=== PATIENT | female | born 1945 | race Hispanic/Latino ===

== ENCOUNTER 2018-04-19 13:32 | Outpatient (CLI) | payer MEDICARE ==
--- NOTE | 2018-04-19 15:22 | ULT ---
SONOGRAM LEFT BREAST LIMITED: HISTORY: Bloody nipple discharge. FINDINGS: Sonographic evaluation of the retroareolar aspect of the left breast was performed. No solid or cyst ic masses. No dilated ducts. IMPRESSION: BIRADS category 2. Benign findings. Given the reported history of bloody nipple discharge, however, further clinical or imaging evaluatio n may be warranted. For bloody nipple discharge, please consider surgical consultation and/or MRI of the breasts for furt her evaluation. POS: [facility]
== END 2018-04-19 13:33 | disposition home or self-care (01) ==
LOC: BICMAMMO 13:32
PROVIDERS: ATTEND Family Medicine
DX: N64.52 Nipple discharge (principal)
CPT/HCPCS: 76642; 77066; G0279

== ENCOUNTER 2018-12-22 08:39 | Observation (INO) | payer MEDICARE ==
[2018-12-22] MEDS ORDERED: Ondansetron ODT 4 MG TAB ONE (08:59)
[2018-12-22 09:13] LABS: Bacteria/HPF 1+ HPF (None Seen); Bilirubin Negative (Negative); Blood, Urine Negative (Negative); Clarity Clear (Clear); Glucose, Urine (Dipstick) 500 mg/dL (Negative); Leukocyte Negative Leu/uL (Negative); Nitrite Negative (Negative); Protein, Urine (Dipstick) 70 mg/dL (Neg-Trace); RBC/HPF 0-3 HPF (0-3); Urobilinogen Normal mg/dL (Less than 2); WBC/HPF 0-3 HPF (0-3)
[2018-12-22 09:15] LABS: #Eosinphils 0.1 thou/uL (0.0-0.7); #Lymphocytes 1.8 thou/uL (1.20-3.40); #Monocytes 0.3 thou/uL (0.11-0.59); #Neutrophils 9.8 thou/uL (1.40-6.50); %Lymphocytes 15.1 % (21.0-51.0); %Monocytes 2.6 % (0.0-10.0); %Neutrophils 81.2 % (42.0-75.0); Hemoglobin 14.7 g/dL (12.0-16.0); Mean Corpuscular Hemoglobin 29.6 pg (27.0-31.0); Mean Corpuscular Volume 87.1 fL (78.0-98.0); Mean Platelet Volume 7.8 fL (7.4-10.4); Platelet Count 295 thou/uL (130-400); RBC Distribution Width 12.2 % (11.5-14.5); Red Blood Cell (RBC) Count 4.95 mill/uL (4.20-5.40); White Blood Cell (WBC) Count 12.1 thou/uL (4.8-10.8)
[2018-12-22 09:35] LABS: ALT (SGPT) 23 U/L (8-55); AST (SGOT) 22 U/L (5-34); Albumin 4.5 g/dL (3.4-4.8); Alkaline Phosphatase 82 U/L (40-150); Anion Gap 14 mmol/L (10-20); BUN (Urea Nitrogen) 8 mg/dL (9.8-20.1); Bilirubin, Total 0.8 mg/dL (0.2-1.2); Calc. Creatinine Clearance 0 mL/min (70-130); Calcium 9.6 mg/dL (7.8-10.44); Carbon Dioxide 25 mmol/L (23-31); Chloride 102 mmol/L (98-107); Estimated GFR-MDRD 67; Globulin 3.6 g/dL (2.4-3.5); Glucose 207 mg/dL (83-110); Potassium 3.6 mmol/L (3.5-5.1); Protein, Total 8.1 g/dL (6.0-8.3); Sodium 137 mmol/L (136-145)
[2018-12-22] MEDS ORDERED: Diazepam 10 MG/2 ML SYRINGE ONE (09:39)
--- NOTE | 2018-12-22 10:10 | CT ---
CT head without contrast: Multiple axial tomograms obtained through the head without IV enhancement. INDICATIONS: Dizziness COMPARISON: 10/15/2010 FINDINGS: Ventricles have normal size and position. No evidence of intracranial mass, hemorrhage, edema, or infarct. Basal ganglia calcifications again noted. Visualized sinuses and mastoids appear clear. Bony calvarium appears unremarkable. IMPRESSION: No acute finding
[2018-12-22] MEDS ORDERED: Ondansetron ODT 4 MG TAB SL PRN (13:30)
[2018-12-22] MEDS ORDERED: Ondansetron PF 4 MG/2 ML Vial IVP PRN (13:30)
[2018-12-22] MEDS ORDERED: Acetaminophen 325 MG TAB PO PRN (13:40)
[2018-12-22 14:23] LABS: Cardiac Risk 4.6 (Less than 4.5)
[2018-12-22] MEDS: Sodium Chloride 0.9% 1,000 ML IV SCH ×2 (14:34→21:48)
[2018-12-22 15:56] VITALS: BMI 24.9
[2018-12-22] MEDS ORDERED: Aspirin 81 mg Enteric Coated Tablet PO SCH (16:15)
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
[2018-12-22] MEDS ORDERED: Melatonin 3 MG TAB PO SCH (21:00)
[2018-12-22] MEDS ORDERED: Atorvastatin Calcium 40 MG TAB PO SCH (21:00)
[2018-12-22] MEDS: cloNIDine 0.1 MG TAB PO SCH (21:47)
[2018-12-22 23:40] VITALS: TEMP 97.6
--- NOTE | 2018-12-23 05:08 | PDOC.FM ---
- Subjective Subjective: She says the dizziness is much improved. She rated the initial episode a 50/10 and she said it is now a 3/10. She says she is eating fine. BM yesterday morning. She is not hurting anywhere. - Objective MAR Reviewed: Yes Vital Signs & Weight: Vital Signs (12 hours) Temp Pulse Resp BP BP Pulse Ox 12/23/18 03:52 97.6 F 69 16 138/75 95 12/22/18 23:39 97.6 F 60 18 129/63 94 L 12/22/18 21:47 147/74 H 12/22/18 19:15 97.7 F 62 16 147/74 H 97 Weight Weight 65.862 kg I&O: 12/21/18 12/22/18 12/23/18 06:59 06:59 06:59 Intake Total 340 Balance 340 Result Diagrams: 12/22/18 09:07 12/22/18 09:07 Phys Exam - Physical Examination Constitutional: NAD HEENT: PERRLA, moist MMs, oral pharynx no lesions EOMI she might have still had slight nystagmus, but difficult to appreciate Neck: supple, full ROM Respiratory: clear to auscultation bilateral Cardiovascular: RRR, no significant murmur Gastrointestinal: soft, non-tender, positive bowel sounds Musculoskeletal: no edema, pulses present Neurological: moves all 4 limbs Psychiatric: normal affect, A&O x 3 Skin: no rash Dx/Plan (1) Stroke Code(s): I63.9 - CEREBRAL INFARCTION, UNSPECIFIED Status: Acute (2) Vertigo Code(s): R42 - DIZZINESS AND GIDDINESS Status: Acute (3) HTN (hypertension) Code(s): I10 - ESSENTIAL (PRIMARY) HYPERTENSION Status: Acute (4) Diabetes mellitus Code(s): E11.9 - TYPE 2 DIABETES MELLITUS WITHOUT COMPLICATIONS Status: Acute - Plan Plan: Pt is a 73 yo F with history of DM and HTN who presents for dizziness. 1. Stroke R/o CT: Neg * Obtaining MRI of brain today * Pt is currently on ASA and Carvedilol at home 2. Intractable Vertigo Hence exam: Negative * Patient was given Valium and Zofran and symptoms improved * On Exam she has fluid present behind her TMs * She is on fluids NS @ 100 * Will monitor 3. HTN BP: 126/52 * On ASA, Carvedilol, Clonidine, and Amlodipine at home * Will monitor 4. DMII Home med: Metformin * Will monitor * ACHS bg checks * BG are in 120s besides admission glucose of 207 5. HLD Currently on a Atorvastatin 40 * Trig 149, Chol 209, LDL 132, HDL 45 * ASCVD: 45.4 Code Status: Full DVT PPx: Lovenox GI Propylaxis: Pepcid Lines: Peripheral Code: CC Dispo: Obs, will be her <2 midnights. Can likely d/c today if MRI is neg. Addendum - Attending - Attending Attestation Date/Time: 12/23/18 1106 I personally evaluated the patient and discussed the management with Dr. Barnett I agree with the History, Examination, Assessment and Plan documented above with any addition or exceptions noted below. patient with marked clinical improvement d/c pending MRI today lorazepam ordered pre-procedure for anxiety. R/o central vertigo although note clinical improvement.
[2018-12-23] MEDS ORDERED: Carvedilol 6.25 MG TAB PO SCH (08:00)
[2018-12-23] MEDS ORDERED: metFORMIN 500 MG TAB PO SCH (08:00)
[2018-12-23] MEDS ORDERED: Prevnar 13-Val Conj/PF 0.5 ML SYRINGE IM ONE (09:00)
[2018-12-23] MEDS ORDERED: Enoxaparin Sodium 40 MG/0.4 ML SYRINGE SC SCH (09:00)
[2018-12-23] MEDS ORDERED: Aspirin 81 mg Enteric Coated Tablet PO SCH ×2 (09:00)
[2018-12-23] MEDS ORDERED: Amlodipine 10 MG TAB PO SCH (09:00)
[2018-12-23] MEDS: cloNIDine 0.1 MG TAB PO SCH (09:20)
[2018-12-23] MEDS: Sodium Chloride 0.9% 1,000 ML IV SCH (09:21)
[2018-12-23 09:25] VITALS: BP 147/74
[2018-12-23] MEDS ORDERED: Lorazepam 2 MG/ML VIAL SLOW IVP SCH (09:48)
--- NOTE | 2018-12-23 11:56 | MRI ---
Exam: Brain MRI without contrast HISTORY: Dizziness. Evaluate for CVA. COMPARISON: None FINDINGS: Calvarial marrow signal intensity: Appropriate T1 signal Gradient echo sequence: No hemorrhage Brain parenchyma: No mass, mass effect or midline shift. Brain volume, age-appropriate. Cortical hodges-white matter differentiation: Preserved Restricted diffusion: Central arterial flow voids are maintained. Absent restricted diffusion White matter signal intensities:No significant T2 or FLAIR white matter hyperintensities. Sinuses: Mild mucosal disease of the paranasal sinuses. Adequate mastoid air cell aeration. IMPRESSION: Unremarkable noncontrast brain MRI.
--- NOTE | 2018-12-24 11:31 | DIS ---
DATE OF ADMISSION: 12/22/2018 DATE OF DISCHARGE: 12/23/2018 ADMITTING ATTENDING: Shreyas Tello MD DISCHARGE ATTENDING: Shreyas Tello MD CONSULTS: None. PROCEDURES: * Brain CT on 12/22 showed no acute findings. * Brain MRI on 12/23 showed unremarkable noncontrast brain MRI. PRIMARY DIAGNOSIS: Vertigo. SECONDARY DIAGNOSES: 1. Hypertension 2. diabetes. DISCHARGE MEDICATIONS: 1. Flonase 2 sprays each nares daily. 2. Meclizine 25 mg p.o. daily p.r.n. 3. Continue home medications. DISCONTINUED MEDICATIONS: 1. Zofran. 2. Phenergan. HISTORY OF PRESENT ILLNESS: The patient is a 73-year-old female with history of diabetes and hypertension, who presents for dizziness. She said she woke at 6: 25 a.m. and was trying to get up out of bed, was so dizzy that she fell backwards onto bed. She said the whole little room was spinning. She denied taking any medications. She came straight to the ER. She said the dizziness has improved since she came into the hospital. She said she had an episode of vertigo with her high pressure in 2010, when it jumped up to the 200s. In the ED, she was given Valium and Zofran. 1. Stroke rule out. * CT negative. * Brain MRI negative. * Patient is currently on aspirin and carvedilol at home. 2. Intractable vertigo. * Hence exam negative. * Patient given Valium and Zofran in the ED and improved. * Symptoms improved with nausea medication and fluids. 3. Hypertension. * Blood pressure is stable on home regimen of aspirin, carvedilol, clonidine, and amlodipine. 4. Diabetes type 2. * Metformin is her home medication. * Blood glucose in the 120s. 5. Hyperlipidemia. * Currently on atorvastatin 40. * Triglycerides 149, cholesterol 209, LDL 132, HDL 45. DISPOSITION: Stable. DISCHARGE INSTRUCTIONS: 1. Location: Home. 2. Diet: Consistent carb. 3. Activity: As tolerated. 4. Follow up [facility] within 7 days of discharge. Job ID: [id number] MTDD
== END 2018-12-23 13:38 | disposition home or self-care (01) ==
LOC: ERS 08:39 → 2SE 10:40
PROVIDERS: ADMIT Family Medicine; ATTEND Family Medicine
DX: R42 Dizziness and giddiness (principal); E11.9 Type 2 diabetes mellitus without complications; I10 Essential (primary) hypertension; E78.5 Hyperlipidemia, unspecified; Z79.82 Long term (current) use of aspirin; Z79.84 Long term (current) use of oral hypoglycemic drugs; Z79.899 Other long term (current) drug therapy; Z88.8 Allergy status to other drugs, medicaments and biological substances
CPT/HCPCS: 36415; 36416; 70450; 70551; 80053; 80061; 81003; 81015; 84484; 85025; 93005; 96361; 96372; 96374; 96375; G0378; J1650; J2060; J3360; Q0162

== ENCOUNTER 2019-10-30 12:43 | Emergency (ER) | payer MEDICARE, OTHER ==
[2019-10-30 13:42] LABS: #Eosinphils 0.1 thou/uL (0.0-0.7); #Lymphocytes 1.5 thou/uL (1.20-3.40); #Monocytes 0.4 thou/uL (0.11-0.59); #Neutrophils 8.4 thou/uL (1.40-6.50); %Basophils 0.3 % (0.0-1.0); %Eosinophils 0.6 % (0.0-10.0); %Lymphocytes 14.4 % (21.0-51.0); %Monocytes 3.7 % (0.0-10.0); %Neutrophils 80.9 % (42.0-75.0); Hemoglobin 13.7 g/dL (12.0-16.0); Mean Corpuscular HGB CONC 33.1 g/dL (32.0-36.0); Mean Corpuscular Hemoglobin 29.5 pg (27.0-31.0); Mean Platelet Volume 7.2 fL (7.4-10.4); Platelet Count 379 thou/uL (130-400); Red Blood Cell (RBC) Count 4.65 mill/uL (4.20-5.40); White Blood Cell (WBC) Count 10.4 thou/uL (4.8-10.8)
[2019-10-30 13:54] LABS: Bilirubin Negative (Negative); Blood, Urine Negative (Negative); Clarity Clear (Clear); Glucose, Urine (Dipstick) Normal (Negative); Ketone, Urine Negative (Negative); Leukocyte Negative Leu/uL (Negative); Nitrite Negative (Negative); Protein, Urine (Dipstick) Negative (Neg-Trace); Specific Gravity, Urine 1.007 (1.002-1.036); Urobilinogen Normal mg/dL (Less than 2)
--- NOTE | 2019-10-30 13:56 | RAD ---
EXAM: Single view of the chest HISTORY: Covid with shortness of breath and weakness COMPARISON: 08/06/2014 FINDINGS: Single view of the chest shows a normal sized cardiomediastinal silhouette. Peripheral airs pace opacities are seen in the bilateral lungs. The bones are unremarkable IMPRESSION: Multifocal peripheral infiltrates are consistent with Covid pneumonia.
[2019-10-30 14:09] LABS: ALT (SGPT) 23 U/L (8-55); AST (SGOT) 28 U/L (5-34); Albumin 3.7 g/dL (3.4-4.8); Alkaline Phosphatase 71 U/L (40-110); Anion Gap 15 mmol/L (10-20); BUN (Urea Nitrogen) 6 mg/dL (9.8-20.1); Bilirubin, Total 0.5 mg/dL (0.2-1.2); CK (CPK) 101 U/L (29-168); Calc. Creatinine Clearance 0 mL/min (70-130); Calcium 9.9 mg/dL (7.8-10.44); Carbon Dioxide 26 mmol/L (23-31); Chloride 103 mmol/L (98-107); Estimated GFR-MDRD 69; Glucose 185 mg/dL (83-110); Magnesium 1.8 mg/dL (1.6-2.6); Protein, Total 7.7 g/dL (6.0-8.3); Sodium 140 mmol/L (136-145)
[2019-10-30] MEDS ORDERED: Dexamethasone 4 mg/ml Vial ONE (15:45)
== END 2019-10-30 16:37 | disposition home or self-care (01) ==
LOC: ERS 12:43
DX: U07.1 COVID-19 (principal); E86.0 Dehydration; E11.9 Type 2 diabetes mellitus without complications; E78.5 Hyperlipidemia, unspecified; E78.00 Pure hypercholesterolemia, unspecified; I10 Essential (primary) hypertension; Z79.84 Long term (current) use of oral hypoglycemic drugs; Z79.82 Long term (current) use of aspirin; Z79.891 Long term (current) use of opiate analgesic; Z79.899 Other long term (current) drug therapy
CPT/HCPCS: 36415; 71045; 80053; 81003; 82550; 83605; 83735; 84443; 84484; 85025; 93005; 96361; 96374; J1100

== ENCOUNTER 2020-06-24 14:46 | Outpatient (CLI) | payer MEDICARE | END 2020-06-24 14:47 | disposition home or self-care (01) | LOC: BICMAMMO 14:46 | PROVIDERS: ATTEND Family Medicine | DX: N64.52 Nipple discharge (principal) | CPT/HCPCS: 76642; 77066; G0279 ==

== ENCOUNTER → 2020-07-03 | Day surgery (SDC) | payer MEDICARE | LOC: BICULT 12:53 | PROVIDERS: ATTEND Family Medicine | PROC: 0H9U3ZX Drainage of Left Breast, Percutaneous Approach, Diagnostic (ICD-10-PCS; principal; 2020-07-03) | DX: N63.25 Unspecified lump in the left breast, overlapping quadrants (principal); Z88.8 Allergy status to other drugs, medicaments and biological substances | CPT/HCPCS: 19083; 88305; 88341; 88342 ==

== ENCOUNTER 2020-07-27 14:11 | Outpatient (CLI) | payer MEDICARE ==
[2020-07-27 15:37] LABS: Anion Gap 13 mmol/L (10-20); BUN (Urea Nitrogen) 13 mg/dL (9.8-20.1); Calc. Creatinine Clearance 0 mL/min (70-130); Calcium 9.1 mg/dL (7.8-10.44); Carbon Dioxide 25 mmol/L (23-31); Chloride 105 mmol/L (98-107); Glucose 94 mg/dL (83-110); Potassium 3.7 mmol/L (3.5-5.1); Sodium 139 mmol/L (136-145)
[2020-07-27 16:59] LABS: #Eosinphils 0.2 10x3/uL (0.0-0.5); #Monocytes 0.4 10x3/uL (0.0-1.1); %Basophils 0.3 % (0.0-2.0); %Eosinophils 2.4 % (0.0-6.0); %Lymphocytes 33.2 % (18.0-47.0); %Monocytes 5.7 % (0.0-10.0); %Neutrophils 58.1 % (40.0-75.0); Mean Corpuscular HGB CONC 32.9 g/dL (32.0-36.0); Mean Corpuscular Volume 88.2 fl (81.6-98.3); Mean Platelet Volume 10.7 fl (7.4-10.4); Platelet Count 290 10x3/uL (150-450); RBC Distribution Width 13.1 % (11.5-14.5); Red Blood Cell (RBC) Count 4.48 10x6/uL (3.90-5.03)
[2020-07-28 06:59] LABS: SARS-CoV-2 PCR by NAA Not Detected (NotDetected)
== END 2020-07-27 14:12 | disposition home or self-care (01) ==
LOC: LABBT 14:11
PROVIDERS: ATTEND Specialist
DX: Z01.818 Encounter for other preprocedural examination (principal); N63.20 Unspecified lump in the left breast, unspecified quadrant; Z20.822 Contact with and (suspected) exposure to COVID-19
CPT/HCPCS: 80048; 85025; U0003; U0005; 87635; 93005; 93010

== ENCOUNTER 2020-07-30 09:04 | Day surgery (SDC) | payer MEDICARE ==
[2020-07-29 11:24] VITALS: BMI 28.5
[2020-07-30] MEDS ORDERED: Acetaminophen 500 MG TAB ONE (10:45)
[2020-07-30] MEDS ORDERED: Ketorolac Tromethamine 30 MG/ML VIAL ONE (10:45)
[2020-07-30] MEDS ORDERED: Fentanyl 100 MCG/2 ML VIAL ONE (12:58)
[2020-07-30] MEDS ORDERED: Bupivacaine 0.25% HCL 30 ML VIAL ONE (13:01)
[2020-07-30] MEDS ORDERED: Lidocaine 1% w/Epinephrine 1:100K 20 ML VIAL ONE (13:01)
[2020-07-30] MEDS ORDERED: PROPOFOL 200 MG/20 ML VIAL ONE (13:20)
[2020-07-30] MEDS ORDERED: Lidocaine 1% PF 5 ML VIAL ONE (13:20)
[2020-07-30] MEDS ORDERED: ePHEDrine Sulfate 50 MG/10 ML VIAL ONE (13:20)
[2020-07-30] MEDS ORDERED: Ondansetron PF 4 MG/2 ML Vial ONE (13:20)
== END 2020-07-30 16:52 | disposition home or self-care (01) ==
LOC: SDC 09:04
PROVIDERS: ATTEND Specialist
PROC: 0HBU0ZZ Excision of Left Breast, Open Approach (ICD-10-PCS; principal; 2020-07-30)
DX: D24.2 Benign neoplasm of left breast (principal); N60.92 Unspecified benign mammary dysplasia of left breast; Z79.82 Long term (current) use of aspirin; Z79.84 Long term (current) use of oral hypoglycemic drugs; Z79.899 Other long term (current) drug therapy; Z88.8 Allergy status to other drugs, medicaments and biological substances
CPT/HCPCS: 76098; 88307; 88341; 88342; J0690; J1885; J2405; J2704; J3010; S0020

== ENCOUNTER 2021-01-21 13:36 | Emergency (ER) | payer MEDICARE ==
[2021-01-21 15:11] LABS: #Eosinphils 0.1 thou/uL (0.0-0.7); #Lymphocytes 2.1 thou/uL (1.20-3.40); #Monocytes 0.4 thou/uL (0.11-0.59); %Basophils 0.5 % (0.0-1.0); %Eosinophils 1.4 % (0.0-10.0); %Lymphocytes 23.8 % (21.0-51.0); %Neutrophils 69.4 % (42.0-75.0); Hemoglobin 14.6 g/dL (12.0-16.0); Mean Corpuscular HGB CONC 33.9 g/dL (32.0-36.0); Mean Corpuscular Hemoglobin 30.3 pg (27.0-31.0); Mean Corpuscular Volume 89.4 fL (78.0-98.0); Mean Platelet Volume 7.9 fL (7.4-10.4); Platelet Count 273 thou/uL (130-400); RBC Distribution Width 12.6 % (11.5-14.5); Red Blood Cell (RBC) Count 4.82 mill/uL (4.20-5.40); White Blood Cell (WBC) Count 8.7 thou/uL (4.8-10.8)
[2021-01-21 15:39] LABS: Albumin 4.1 g/dL (3.4-4.8); Anion Gap 10 mmol/L (10-20); BUN (Urea Nitrogen) 12 mg/dL (9.8-20.1); Calc. Creatinine Clearance 0 mL/min (70-130); Calcium 9.9 mg/dL (7.8-10.44); Carbon Dioxide 30 mmol/L (23-31); Chloride 104 mmol/L (98-107); Globulin 3.4 g/dL (2.4-3.5); Glucose 181 mg/dL (83-110); Potassium 4.1 mmol/L (3.5-5.1); Protein, Total 7.5 g/dL (5.8-8.1); Sodium 140 mmol/L (136-145)
[2021-01-21 15:40] LABS: ALT (SGPT) 17 U/L (8-55); AST (SGOT) 19 U/L (5-34); Alkaline Phosphatase 81 U/L (40-110); Lipase 6 U/L (8-78)
== END 2021-01-21 16:54 | disposition home or self-care (01) ==
LOC: ERS 13:36
DX: I10 Essential (primary) hypertension (principal); E11.9 Type 2 diabetes mellitus without complications; E78.00 Pure hypercholesterolemia, unspecified; Z79.84 Long term (current) use of oral hypoglycemic drugs; Z79.899 Other long term (current) drug therapy
CPT/HCPCS: 36415; 71045; 80053; 83690; 84484; 85025; 93005

== ENCOUNTER 2021-02-07 21:27 | Observation (INO) | payer MEDICARE ==
[2021-02-07 23:00] LABS: #Basophils 0.1 thou/uL (0.0-0.2); #Eosinphils 0.1 thou/uL (0.0-0.7); #Lymphocytes 2.9 thou/uL (1.20-3.40); #Monocytes 0.5 thou/uL (0.11-0.59); #Neutrophils 5.6 thou/uL (1.40-6.50); %Basophils 0.7 % (0.0-1.0); %Eosinophils 1.6 % (0.0-10.0); %Lymphocytes 31.3 % (21.0-51.0); %Monocytes 4.9 % (0.0-10.0); %Neutrophils 61.5 % (42.0-75.0); Mean Corpuscular HGB CONC 34.9 g/dL (32.0-36.0); Mean Corpuscular Hemoglobin 31.1 pg (27.0-31.0); Mean Corpuscular Volume 89.1 fL (78.0-98.0); Mean Platelet Volume 8.4 fL (7.4-10.4); Platelet Count 261 thou/uL (130-400); RBC Distribution Width 12.5 % (11.5-14.5); Red Blood Cell (RBC) Count 4.51 mill/uL (4.20-5.40); White Blood Cell (WBC) Count 9.1 thou/uL (4.8-10.8)
[2021-02-07 23:03] LABS: ALT (SGPT) 14 U/L (8-55); AST (SGOT) 15 U/L (5-34); Alkaline Phosphatase 79 U/L (40-110); Anion Gap 13 mmol/L (10-20); BUN (Urea Nitrogen) 14 mg/dL (9.8-20.1); Bilirubin, Total 0.9 mg/dL (0.2-1.2); Calc. Creatinine Clearance 0 mL/min (70-130); Calcium 10.1 mg/dL (7.8-10.44); Carbon Dioxide 29 mmol/L (23-31); Chloride 105 mmol/L (98-107); Glucose 136 mg/dL (83-110); Potassium 3.5 mmol/L (3.5-5.1); Sodium 143 mmol/L (136-145)
[2021-02-08] MEDS ORDERED: Nitroglycerin 0.4 MG TAB (25 Tab Bottle) SL PRN (00:14)
[2021-02-08] MEDS ORDERED: Acetaminophen 325 MG TAB PO PRN (00:14)
[2021-02-08] MEDS ORDERED: Ondansetron PF 4 MG/2 ML Vial IVP PRN (00:14)
[2021-02-08] MEDS ORDERED: Ondansetron ODT 4 MG TAB PO PRN (00:14)
[2021-02-08] MEDS ORDERED: cloNIDine 0.1 MG TAB ONE (00:15)
[2021-02-08] MEDS ORDERED: Aspirin 325 MG TAB ONE (00:15)
[2021-02-08] MEDS ORDERED: Fluticasone Propionate Nasal Spray 16 gm Bottle NASAL PRN (00:24)
[2021-02-08] MEDS ORDERED: Carvedilol 6.25 MG TAB PO SCH ×2 (00:30→08:00)
[2021-02-08] MEDS ORDERED: Dextrose 50% Abboject 50 ML SYRINGE SLOW IVP PRN (01:12)
[2021-02-08] MEDS ORDERED: Dextrose 5% in Water 1,000 ML IV PRN (01:12)
[2021-02-08] MEDS ORDERED: HumaLOG 300 UNITS/3 ML VIAL SC PRN ×2 (01:12)
[2021-02-08] MEDS ORDERED: hydrALAZINE 20 MG/ML VIAL SLOW IVP PRN (01:37)
[2021-02-08 01:39] VITALS: BMI 25.9
[2021-02-08 01:54] LABS: Troponin I Less than 0.010 ng/mL (< 0.028)
[2021-02-08 04:52] LABS: Troponin I 0.011 ng/mL (< 0.028)
[2021-02-08] MEDS ORDERED: Aspirin 81 mg Enteric Coated Tablet PO SCH (09:00)
[2021-02-08] MEDS ORDERED: Amlodipine 10 MG TAB PO SCH (09:00)
[2021-02-08] MEDS ORDERED: cloNIDine 0.1 MG TAB PO SCH (09:00)
[2021-02-08] MEDS ORDERED: Enoxaparin Sodium 40 MG/0.4 ML SYRINGE SC SCH (09:00)
[2021-02-08] MEDS ORDERED: metFORMIN 500 MG TAB PO SCH (09:00)
[2021-02-08] MEDS ORDERED: ADENOSINE 60 MG/20 ML VIAL ONE (09:13)
[2021-02-08 11:51] LABS: SARS-CoV-2 PCR by NAA Not Detected (NotDetected)
[2021-02-08 15:54] VITALS: BP 134/61; TEMP 97.7
[2021-02-08] MEDS ORDERED: Atorvastatin Calcium 40 MG TAB PO SCH (21:00)
== END 2021-02-08 16:08 | disposition home or self-care (01) ==
LOC: ERS 21:27 → 2SW 23:35
PROVIDERS: ADMIT Family Medicine; ATTEND Family Medicine
DX: R07.89 Other chest pain (principal); I10 Essential (primary) hypertension; E78.5 Hyperlipidemia, unspecified; E11.9 Type 2 diabetes mellitus without complications; J30.2 Other seasonal allergic rhinitis; Z20.822 Contact with and (suspected) exposure to COVID-19; Z79.84 Long term (current) use of oral hypoglycemic drugs; Z79.82 Long term (current) use of aspirin; Z79.899 Other long term (current) drug therapy; Z88.8 Allergy status to other drugs, medicaments and biological substances; Z98.890 Other specified postprocedural states
CPT/HCPCS: 71045; 78452; 80053; 82962; 84484 ×3; 85025; 93017; 94760; 96372; 99285; A9500; G0378 ×2; U0003; U0005; 36415; 36416; J0153; J1650

== ENCOUNTER 2021-07-12 10:10 | Outpatient (CLI) | payer MEDICARE | END 2021-07-12 10:11 | disposition home or self-care (01) | LOC: BICMAMMO 10:10 | PROVIDERS: ATTEND Specialist | DX: N63.20 Unspecified lump in the left breast, unspecified quadrant (principal) | CPT/HCPCS: 77066; G0279 ==

== ENCOUNTER 2023-11-28 00:55 | Observation (INO) | payer MEDICARE ==
[2023-11-28] MEDS ORDERED: Adenosine 6 mg (2 mL) VIAL ONE (01:24)
[2023-11-28] MEDS ORDERED: Metoprolol Tartrate 5 MG (5 mL) VIAL ONE (01:32)
[2023-11-28 01:52] LABS: #Basophils Less than 0.03 10x3/uL (0.0-0.2); %Basophils 0.2 % (0.0-1.0); %Eosinophils 2.4 % (0.0-10.0); %Monocytes 4.1 % (0.0-10.0); %Neutrophils 64.1 % (42.0-75.0); Hematocrit 41.3 % (36.0-47.0); Mean Corpuscular HGB CONC 33.9 g/dL (32.0-36.0); Mean Corpuscular Hemoglobin 29.2 pg (27.0-31.0); Mean Corpuscular Volume 86.2 fL (78.0-98.0); Mean Platelet Volume 9.5 fL (7.4-10.4); Platelet Count 275 10x3/uL (130-400); RBC Distribution Width 13.2 % (11.5-14.5); Red Blood Cell (RBC) Count 4.79 mill/uL (4.20-5.40)
[2023-11-28 02:07] LABS: ALT (SGPT) 68 U/L (8-55); AST (SGOT) 94 U/L (5-34); Albumin 3.6 g/dL (3.4-4.8); Alkaline Phosphatase 99 U/L (40-110); Anion Gap 15 mmol/L (10-20); BUN (Urea Nitrogen) 13 mg/dL (9.8-20.1); Bilirubin, Total 0.8 mg/dL (0.2-1.2); Calc. Creatinine Clearance 0 mL/min (70-130); Calcium 9.2 mg/dL (7.8-10.44); Carbon Dioxide 25 mmol/L (23-31); Chloride 105 mmol/L (98-107); Estimated GFR 58; Globulin 3.7 g/dL (2.4-3.5); Glucose 300 mg/dL (83-110); Magnesium 1.8 mg/dL (1.6-2.6); Potassium 3.6 mmol/L (3.5-5.1); Protein, Total 7.3 g/dL (5.8-8.1); Sodium 141 mmol/L (136-145)
[2023-11-28 02:13] LABS: Troponin I Less than 0.010 ng/mL (< 0.028)
[2023-11-28] MEDS ORDERED: Metoprolol Tartrate 25 MG TAB ONE (02:49)
[2023-11-28] MEDS ORDERED: Aspirin Chewable 81 MG TAB ONE (02:49)
[2023-11-28] MEDS ORDERED: Ondansetron ODT 4 MG TAB SL PRN (03:45)
[2023-11-28] MEDS ORDERED: Ondansetron PF 4 MG/2 ML Vial IVP PRN (03:45)
[2023-11-28] MEDS ORDERED: Acetaminophen 325 MG TAB PO PRN (03:45)
[2023-11-28] MEDS ORDERED: Glucagon 1 MG/ML KIT IM PRN (04:08)
[2023-11-28] MEDS ORDERED: Dextrose 50% Abboject 50 ML SYRINGE SLOW IVP PRN (04:08)
[2023-11-28] MEDS ORDERED: Insulin Lispro 100 UNIT/ML 10 ML VIAL SC PRN ×2 (04:08)
[2023-11-28] MEDS ORDERED: Dextrose 5% in Water 1,000 ML IV PRN (04:08)
[2023-11-28 05:23] LABS: Troponin I Less than 0.010 ng/mL (< 0.028)
[2023-11-28 05:24] LABS: Lactic Acid 2.7 mmol/L (0.5-2.2)
[2023-11-28 09:33] LABS: Troponin I Less than 0.010 ng/mL (< 0.028)
[2023-11-28] MEDS ORDERED: Aspirin 81 mg Enteric Coated Tablet ONE (10:32)
[2023-11-28] MEDS ORDERED: Losartan 25 MG TAB ONE (10:33)
[2023-11-28] MEDS ORDERED: Carvedilol 25 MG TAB ONE (10:33)
[2023-11-28 10:55] VITALS: BP 145/83; TEMP 98.1
[2023-11-28] MEDS: Aspirin 81 mg Enteric Coated Tablet PO SCH (10:56)
[2023-11-28] MEDS: Carvedilol 25 MG TAB PO SCH (10:56)
[2023-11-28] MEDS: Losartan 25 MG TAB PO SCH (10:56)
[2023-11-28 11:05] VITALS: BMI 29.0
[2023-11-28] MEDS ORDERED: Amlodipine 10 MG TAB PO SCH (21:00)
[2023-11-28] MEDS ORDERED: Atorvastatin Calcium 40 MG TAB PO SCH (21:00)
== END 2023-11-28 12:35 | disposition home or self-care (01) ==
LOC: ERS 00:55 → ERHOLD 03:13
PROVIDERS: ADMIT Family Medicine; ATTEND Family Medicine
DX: R07.89 Other chest pain (principal); I10 Essential (primary) hypertension; E78.5 Hyperlipidemia, unspecified; R74.01 Elevation of levels of liver transaminase levels; I47.10 Supraventricular tachycardia, unspecified; E11.65 Type 2 diabetes mellitus with hyperglycemia; Z88.8 Allergy status to other drugs, medicaments and biological substances; Z85.3 Personal history of malignant neoplasm of breast; Z98.51 Tubal ligation status; Z79.84 Long term (current) use of oral hypoglycemic drugs; Z79.82 Long term (current) use of aspirin; Z79.899 Other long term (current) drug therapy
CPT/HCPCS: 71045; 80053; 82962; 83605; 83735; 83880; 84484 ×2; 85025; 93005; G0378; J0153; 36415; 36416; 96374

== ENCOUNTER 2024-06-05 12:31 | Inpatient (IN) | payer MEDICARE ==
[2024-06-05] MEDS ORDERED: Nitroglycerin 2% Ointment 1 INCH/1 GM Packet ONE (13:39)
[2024-06-05] MEDS ORDERED: Aspirin Chewable 81 MG TAB ONE (13:40)
[2024-06-05] MEDS ORDERED: Nitroglycerin 0.4 MG TAB 1 EACH ONE (13:40)
[2024-06-05 13:45] LABS: #Basophils Less than 0.03 10x3/uL (0.0-0.2); %Basophils 0.3 % (0.0-1.0); %Eosinophils 1.8 % (0.0-10.0); %Lymphocytes 27.4 % (21.0-51.0); %Neutrophils 66.2 % (42.0-75.0); Hematocrit 39.3 % (36.0-47.0); Hemoglobin 13.1 g/dL (12.0-16.0); Mean Corpuscular HGB CONC 33.3 g/dL (32.0-36.0); Mean Corpuscular Hemoglobin 28.5 pg (27.0-31.0); Mean Corpuscular Volume 85.4 fL (78.0-98.0); Mean Platelet Volume 9.6 fL (7.4-10.4); Platelet Count 229 10x3/uL (130-400); RBC Distribution Width 13.6 % (11.5-14.5)
[2024-06-05 14:00] LABS: ALT (SGPT) 15 U/L (Less than 34); AST (SGOT) 25 U/L (11-34); Albumin 3.7 g/dL (3.1-4.5); Alkaline Phosphatase 82 U/L (40-110); Anion Gap 14 mmol/L (10-20); BUN (Urea Nitrogen) 9 mg/dL (9.8-20.1); Calc. Creatinine Clearance 0 mL/min (70-130); Calcium 9.2 mg/dL (7.8-10.44); Carbon Dioxide 25 mmol/L (23-31); Chloride 105 mmol/L (98-107); Estimated GFR 77; Globulin 3.7 g/dL (2.4-3.5); Glucose 197 mg/dL (83-110); Magnesium 1.7 mg/dL (1.6-2.6); Potassium 3.8 mmol/L (3.5-5.1); Protein, Total 7.4 g/dL (5.8-8.1); Sodium 140 mmol/L (136-145)
[2024-06-05 14:04] LABS: Troponin I Less than 0.010 ng/mL (< 0.028)
[2024-06-05] MEDS ORDERED: hydrALAZINE 20 MG/ML VIAL ONE ×3 (16:17→23:03)
[2024-06-05 17:20] VITALS: BMI 27.4
[2024-06-05] MEDS ORDERED: hydrALAZINE 20 MG/ML VIAL SLOW IVP PRN ×2 (17:34→18:25)
[2024-06-05] MEDS ORDERED: hydrALAZINE 20 MG/ML VIAL SLOW IVP SCH (17:45)
[2024-06-05] MEDS: hydrALAZINE 20 MG/ML VIAL SLOW IVP SCH (18:13)
[2024-06-05] MEDS ORDERED: Losartan 25 MG TAB ONE (18:42)
[2024-06-05] MEDS: Losartan 25 MG TAB PO SCH (18:47)
[2024-06-05 20:33] LABS: Troponin I Less than 0.010 ng/mL (< 0.028)
[2024-06-05] MEDS ORDERED: Atorvastatin Calcium 40 MG TAB ONE (20:41)
[2024-06-05 20:46] LABS: Hemoglobin A1c 8.5 % (4.0-6.0)
[2024-06-05] MEDS: Atorvastatin Calcium 40 MG TAB PO SCH (20:50)
[2024-06-05] MEDS: Amlodipine 10 MG TAB PO SCH (20:50)
[2024-06-05] MEDS: metFORMIN 500 MG TAB PO SCH (20:51)
[2024-06-06 04:27] LABS: #Basophils Less than 0.03 10x3/uL (0.0-0.2); %Basophils 0.3 % (0.0-1.0); %Lymphocytes 31.8 % (21.0-51.0); %Monocytes 4.8 % (0.0-10.0); %Neutrophils 60.8 % (42.0-75.0); Hematocrit 37.5 % (36.0-47.0); Hemoglobin 12.5 g/dL (12.0-16.0); Mean Corpuscular HGB CONC 33.3 g/dL (32.0-36.0); Mean Corpuscular Hemoglobin 28.3 pg (27.0-31.0); Mean Corpuscular Volume 84.8 fL (78.0-98.0); Mean Platelet Volume 9.2 fL (7.4-10.4); Platelet Count 236 10x3/uL (130-400); RBC Distribution Width 13.8 % (11.5-14.5); Red Blood Cell (RBC) Count 4.42 mill/uL (4.20-5.40)
[2024-06-06 04:50] LABS: ALT (SGPT) 12 U/L (Less than 34); AST (SGOT) 21 U/L (11-34); Albumin 3.4 g/dL (3.1-4.5); Alkaline Phosphatase 76 U/L (40-110); Anion Gap 14 mmol/L (10-20); BUN (Urea Nitrogen) 9 mg/dL (9.8-20.1); Bilirubin, Total 1.4 mg/dL (0.3-1.2); Calc. Creatinine Clearance 80 mL/min (70-130); Calcium 8.9 mg/dL (7.8-10.44); Carbon Dioxide 24 mmol/L (23-31); Chloride 106 mmol/L (98-107); Estimated GFR 89; Globulin 3.4 g/dL (2.4-3.5); Glucose 168 mg/dL (83-110); Potassium 3.4 mmol/L (3.5-5.1); Protein, Total 6.8 g/dL (5.8-8.1); Sodium 141 mmol/L (136-145)
[2024-06-06] MEDS: Carvedilol 25 MG TAB PO SCH (08:30)
[2024-06-06] MEDS ORDERED: Carvedilol 25 MG TAB ONE (08:31)
[2024-06-06] MEDS ORDERED: Aspirin 81 mg Enteric Coated Tablet ONE (09:47)
[2024-06-06] MEDS ORDERED: Enoxaparin 40 MG (0.4 mL) SYRINGE ONE (09:47)
[2024-06-06] MEDS ORDERED: Losartan 25 MG TAB ONE (10:03)
[2024-06-06] MEDS: Losartan 25 MG TAB PO SCH (10:25)
[2024-06-06] MEDS: Aspirin 81 mg Enteric Coated Tablet PO SCH (10:25)
[2024-06-06] MEDS: Enoxaparin 40 MG (0.4 mL) SYRINGE SC SCH (10:27)
[2024-06-06 12:30] LABS: Thyroid Stimulating Hormone 2.4269 uIU/mL (0.35-4.94)
[2024-06-06 15:56] VITALS: TEMP 97.6
[2024-06-06 17:09] VITALS: BP 164/79
== END 2024-06-06 18:22 | disposition home or self-care (01) | DRG 305 ==
LOC: ERS 12:31 → ERHOLD 16:53 → PCU 16:55
PROVIDERS: ADMIT Emergency Medicine; ATTEND Emergency Medicine
DX: I16.0 Hypertensive urgency (principal); E11.65 Type 2 diabetes mellitus with hyperglycemia; E78.5 Hyperlipidemia, unspecified; Z88.8 Allergy status to other drugs, medicaments and biological substances; Z79.82 Long term (current) use of aspirin; Z79.899 Other long term (current) drug therapy; Z98.41 Cataract extraction status, right eye; Z98.890 Other specified postprocedural states
CPT/HCPCS: 36415; 71045; 80053; 83036; 83735; 83880; 84439; 84443; 84484; 85025; 93005; 93010; J0360; J1650